=== PATIENT | male | born 1950 | race African-American/Black ===

== ENCOUNTER → 2016-04-21 | Outpatient (CLI) | payer OTHER ==
[~2016-04-21] MED LIST: 1-ME1LIQ PO; AMLO10TA2 PO; ASPI-110 PO; ASPI81TA82 PO; ATOR40TA49 PO; LIPI40TA PO; LISI-363 PO; LISI-515 PO; METF500T PO
[2016-04-21 11:17] LABS: AUTOMATED NEUTROPHIL # 2.2 TH/MM3 (1.8-7.7); BASOPHIL % 1.1 % (0.0-2.0); EOSINOPHIL % 0.7 % (0.0-4.0); HEMATOCRIT 44.8 % (39.0-51.0); HEMO FLAGS DIFF FINAL; LYMPH % 33.3 % (9.0-44.0); LYMPHOCYTE # 1.5 TH/MM3 (1.0-4.8); MEAN CORPUSCULAR HEMOGLOBIN 27.5 PG (27.0-34.0); MEAN CORPUSCULAR HGB CONC 32.8 % (32.0-36.0); MONO % 15.4 % (0.0-8.0); NEUT % 49.5 % (16.0-70.0); PLATELET COUNT 224 TH/MM3 (150-450); RED BLOOD COUNT 5.34 MIL/MM3 (4.50-5.90); RED CELL DISTRIBUTION WIDTH 14.1 % (11.6-17.2); WHITE BLOOD COUNT 4.5 TH/MM3 (4.0-11.0)
[2016-04-21 11:51] LABS: ALT (GPT) 39 U/L (12-78); ANION GAP 4 MEQ/L (5-15); AST (GOT) 23 U/L (15-37); BICARBONATE 32.1 MEQ/L (21.0-32.0); BLOOD UREA NITROGEN 10 MG/DL (7-18); CHLORIDE 104 MEQ/L (98-107); GLOMERULAR FILTRATION RATE 68 ML/MIN (>89); GLUCOSE,FASTING 95 MG/DL (74-99); POTASSIUM 3.7 MEQ/L (3.5-5.1); SODIUM (NA) 140 MEQ/L (136-145)
[2016-04-21 12:00] LABS: ALKALINE PHOSPHATASE 128 U/L (45-117); HDL CHOLESTEROL 47.1 MG/DL (40.0-60.0); LDL CHOLESTEROL 71 MG/DL (0-99); TOTAL BILIRUBIN ADULT 0.7 MG/DL (0.2-1.0)
[2016-04-21 13:50] LABS: HEMOGLOBIN A1a 1.1 %; HEMOGLOBIN Ao 83.2 %; HEMOGLOBIN LA1C 2.1 %; HEMOGLOBIN P3 4.5 %
== END ==
LOC: CLAB 11:00
PROVIDERS: ATTEND Family Medicine
DX: E11.9 Type 2 diabetes mellitus without complications (principal); R73.09 Other abnormal glucose; E78.5 Hyperlipidemia, unspecified; I10 Essential (primary) hypertension
CPT/HCPCS: 36415; 80053; 80061; 83036; 84443; 85025

== ENCOUNTER → 2016-07-12 | Outpatient (CLI) | payer OTHER ==
[~2016-07-12] MED LIST changes: -ASPI81TA82 PO; -ATOR40TA49 PO; -LISI-363 PO
[2016-07-12 12:16] LABS: ALKALINE PHOSPHATASE 116 U/L (45-117); ALT (GPT) 53 U/L (12-78); ANION GAP 6 MEQ/L (5-15); AST (GOT) 27 U/L (15-37); BICARBONATE 30.5 MEQ/L (21.0-32.0); BLOOD UREA NITROGEN 16 MG/DL (7-18); CHLORIDE 104 MEQ/L (98-107); GLOMERULAR FILTRATION RATE 63 ML/MIN (>89); GLUCOSE,FASTING 88 MG/DL (74-99); POTASSIUM 4.1 MEQ/L (3.5-5.1); SODIUM (NA) 140 MEQ/L (136-145); TOTAL BILIRUBIN ADULT 0.3 MG/DL (0.2-1.0)
--- NOTE | 2016-07-12 19:02 | EKG ---
Date Performed: 07/12/2016 Time Performed: 11:55:18 PTAGE: 65 years EKG: SINUS BRADYCARDIA WITH OCCASIONAL SUPRAVENTRICULAR PREMATURE COMPLEXES BORDERLINE ECG PREVIOUS TRACING : 03/30/2015 09.47 Since previous tracing, no significant change noted DOCTOR: Shira Burton Interpretating Date/Time 07/12/2016 19:00:45
== END ==
LOC: CLAB 11:17
PROVIDERS: ATTEND Family Medicine
DX: R00.0 Tachycardia, unspecified (principal)
CPT/HCPCS: 36415; 80053; 84443; 93005

== ENCOUNTER → 2016-08-23 | Outpatient (CLI) | payer OTHER ==
[~2016-08-23] MED LIST changes: -1-ME1LIQ PO
[2016-08-23 17:19] LABS: HEMOGLOBIN Ao 83.6 %; HEMOGLOBIN LA1C 1.9 %; HEMOGLOBIN P3 4.2 %
== END ==
LOC: CLAB 08:25
PROVIDERS: ATTEND Nurse Practitioner Family
DX: R73.09 Other abnormal glucose (principal)
CPT/HCPCS: 36415; 83036

== ENCOUNTER 2017-01-20 03:37 | Emergency (ER) | payer SELFPAY ==
[~2017-01-20] VITALS: Ht 162.6 cm; Wt 63.0 kg
[~2017-01-20 03:37] MED LIST changes: -ASPI-110 PO; +ASPI1TAB57 PO; -LIPI40TA PO; +LOVA20TA PO
[2017-01-20 03:42] VITALS: BP 170/87; PULSE 69; RESP 20; O2SAT 95
[2017-01-20] MEDS ORDERED: SODIUM CHLORIDE 0.9% FLUSH 10 ML FLUSH IVF PRN (04:15)
--- NOTE | 2017-01-20 04:27 | PD ---
HPI Chief Complaint: Anxiety Time Seen by Provider: 04:23 Travel History International Travel<30 days: No Contact w/Intl Traveler<30days: No Traveled to known affect area: No History of Present Illness HPI 66-year-old male presents to the emergency department from home by EMS transport for evaluation of palpitations. Patient states she also sometimes experiences pounding in his head at night. Patient takes blood pressure medication 2 tablets in the morning and one in the evening. Patient states more frequently he has been noticing these symptoms. Patient denies any chest pain. Pain is 0/10 in intensity. 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 Patient also does not report any upper or lower extremity numbness tingling or weakness or ataxia of gait. Patient's had no referred neck jaw back shoulder arm pain. Patient's had no shortness of breath and no pleuritic pain. Patient's had no nausea or vomiting or abdominal pain. Patient's had no recent febrile illness. Patient is compliant with his medications. Patient denies tobacco use. Patient does have diabetes and dyslipidemia. Patient has had good control of his blood sugars. [facility] Past Medical History Narrative Medical Anxiety depression dyslipidemia hypertension diabetes CVA no tobacco use; nursing notes reviewed Hx Anticoagulant Therapy: Yes Autoimmune Disease: No Anxiety: Yes Depression: Yes Heart Rhythm Problems: No Cancer: No Cardiovascular Problems: Yes High Cholesterol: Yes Chest Pain: No Congestive Heart Failure: No Cerebrovascular Accident: Yes Diabetes: No Patient Takes Glucophage: No Diminished Hearing: No Endocrine: No Genitourinary: No Hypertension: Yes Immune Disorder: No Neurologic: No Psychiatric: Yes Reproductive: No Respiratory: No Immunizations Current: Yes Sickle Cell Disease: Yes Thyroid Disease: No Tetanus Vaccination: > 5 Years Influenza Vaccination: No Past Surgical History Abdominal Surgery: No Cardiac Surgery: No Ear Surgery: No Endocrine Surgery: No Eye Surgery: No Genitourinary Surgery: Yes (Liver Biopsy) Oral Surgery: No Thoracic Surgery: No Other Surgery: Yes Social History Alcohol Use: No Tobacco Use: No Substance Use: No Allergies-Medications (Allergen,Severity, Reaction): Coded Allergies: penicillin G (Unverified Allergy, Unknown, 01/20/17) Reported Meds & Prescriptions Reported Meds & Active Scripts Active Lovastatin 20 Mg Tab 20 Mg PO DAILY Amlodipine (Amlodipine Besylate) 10 Mg Tab 10 Mg PO DAILY Metformin (Metformin HCl) 500 Mg Tab 500 Mg PO BIDPC With meals Lisinopril 20 Mg Tab 20 Mg PO BID Reported Aspirin 81 (Aspirin) 81 Mg Tabdr 81 Mg PO DAILY Review of Systems Except as stated in HPI: all other systems reviewed are Neg General / Constitutional: No: Fever, Chills Eyes: No: Diploplia, Blurred Vision, Photophobia HENT: No: Headaches, Vertigo, Lightheadedness Cardiovascular: Positive: Palpitations, No: Chest Pain or Discomfort, Diaphoresis Gastrointestinal: No: Nausea, Vomiting, Abdominal Pain Genitourinary: No: Frequency, Dysuria Musculoskeletal: No: Myalgias, Arthralgias Skin: No Rash Neurologic: No: Weakness, Dizziness, Syncope, Focal Abnormalities, Coordination Problem, Headache, Slurred Speech Psychiatric: Positive: Anxiety Endocrine: No: Heat Intolerance Hematologic/Lymphatic: No: Easy Bruising Physical Exam Narrative GENERAL: Well-developed well-nourished male in no acute distress no respiratory distress; GCS 15 SKIN: Warm and dry. HEAD: Atraumatic. Normocephalic. EYES: Pupils equal and round. No scleral icterus. No injection or drainage. ENT: No nasal bleeding or discharge. Mucous membranes pink and moist. NECK: Trachea midline. No JVD. CARDIOVASCULAR: Regular rate and rhythm. RESPIRATORY: No accessory muscle use. Clear to auscultation. Breath sounds equal bilaterally. GASTROINTESTINAL: Abdomen soft, non-tender, nondistended. Hepatic and splenic margins not palpable. MUSCULOSKELETAL: Extremities without clubbing, cyanosis, or edema. No obvious deformities. NEUROLOGICAL: Awake and alert. No obvious cranial nerve deficits. Motor grossly within normal limits. Five out of 5 muscle strength in the arms and legs. No limb ataxia. No pronator drift. Sensory exam intact. DTRs 2+ and equal bilaterally. Normal speech. PSYCHIATRIC: Appropriate mood and affect; insight and judgment normal. Data Data Last Documented VS Vital Signs Date Time Temp Pulse Resp B/P (MAP) Pulse Ox O2 Delivery O2 Flow Rate FiO2 01/20/17 06:52 56 18 130/77 (94) 98 Room Air Orders Orders Electrocardiogram (01/20/17 04:08) Basic Metabolic Panel (Bmp) (01/20/17 04:08) Ckmb (Isoenzyme) Profile (01/20/17 04:08) Complete Blood Count With Diff (01/20/17 04:08) Magnesium (Mg) (01/20/17 04:08) Prothrombin Time / Inr (Pt) (01/20/17 04:08) Act Partial Throm Time (Ptt) (01/20/17 04:08) Troponin I (01/20/17 04:08) Chest, Single Ap (01/20/17 04:08) Ecg Monitoring (01/20/17 04:08) Bilateral Bp Monitoring (01/20/17 04:08) Iv Access Insert/Monitor (01/20/17 04:08) Oximetry (01/20/17 04:08) Oxygen Administration (01/20/17 04:08) Sodium Chloride 0.9% Flush (Ns Flush) (01/20/17 04:15) Ct Brain W/O Iv Contrast(Rout) (01/20/17 ) Thyroid Stimulating Hormone (01/20/17 04:08) CKMB (01/20/17 04:18) CKMB% (01/20/17 04:18) Ed Discharge Order (01/20/17 07:39) Labs Laboratory Tests Test 01/20/17 04:18 White Blood Count 7.1 TH/MM3 Red Blood Count 5.27 MIL/MM3 Hemoglobin 15.0 GM/DL Hematocrit 45.9 % Mean Corpuscular Volume 87.1 FL Mean Corpuscular Hemoglobin 28.5 PG Mean Corpuscular Hemoglobin Concent 32.7 % Red Cell Distribution Width 14.3 % Platelet Count 210 TH/MM3 Mean Platelet Volume 7.7 FL Neutrophils (%) (Auto) 37.7 % Lymphocytes (%) (Auto) 49.1 % Monocytes (%) (Auto) 10.8 % Eosinophils (%) (Auto) 1.9 % Basophils (%) (Auto) 0.5 % Neutrophils # (Auto) 2.7 TH/MM3 Lymphocytes # (Auto) 3.5 TH/MM3 Monocytes # (Auto) 0.8 TH/MM3 Eosinophils # (Auto) 0.1 TH/MM3 Basophils # (Auto) 0.0 TH/MM3 CBC Comment DIFF FINAL Differential Comment Prothrombin Time 10.7 SEC Prothromb Time International Ratio 1.0 RATIO Activated Partial Thromboplast Time 24.5 SEC Blood Urea Nitrogen 28 MG/DL Creatinine 1.47 MG/DL Random Glucose 93 MG/DL Calcium Level 8.8 MG/DL Magnesium Level 2.3 MG/DL Sodium Level 141 MEQ/L Potassium Level 4.6 MEQ/L Chloride Level 105 MEQ/L Carbon Dioxide Level 29.4 MEQ/L Anion Gap 7 MEQ/L Estimat Glomerular Filtration Rate 58 ML/MIN Total Creatine Kinase 193 U/L Creatine Kinase MB 1.0 NG/ML Troponin I LESS THAN 0.02 NG/ML Thyroid Stimulating Hormone 3rd Gen 1.990 uIU/ML MDM Medical Decision Making Medical Screen Exam Complete: Yes Emergency Medical Condition: Yes Medical Record Reviewed: Yes Interpretation(s) EKG normal sinus rhythm rate 66 occasional supraventricular premature complexes no acute ST elevation injury pattern or ectopy Last Impressions Chest X-Ray 01/20/17 0408 Signed Impressions: Service Date/Time: Friday, January 20, 2017 04:41 - CONCLUSION: No acute cardiopulmonary disease identified. Tonio Lee MD Head CT 01/20/17 0000 Signed Impressions: Service Date/Time: Friday, January 20, 2017 04:46 - CONCLUSION: No acute intracranial findings. Tonio Lee MD CBC & BMP Diagram 01/20/17 04:18 Calcium Level 8.8, Magnesium Level 2.3 Vital Signs Date Time Temp Pulse Resp B/P (MAP) Pulse Ox O2 Delivery O2 Flow Rate FiO2 01/20/17 06:52 56 18 130/77 (94) 98 Room Air 01/20/17 03:42 69 20 170/87 (114) 95 CK 193, not elevated; troponin I less than 0.02, not elevated TSH 1.990 within normal limits Differential Diagnosis Palpitations, arrhythmia, electronic disturbance, atypical chest pain, ACS, MO, TIA, CVA, anxiety Narrative Course Patient placed on tar chaser IV access obtained specimens collected and sent for resulting EKG normal sinus rhythm with rare PAC rate [address] elevation injury pattern or ectopy noted CBC with automated differential and metabolic panel values grossly normal range except for mild renal insufficiency Cardiac enzymes are found to be in normal range troponin I less than 0.02 Thyroid function found to be within normal range Patient resting comfortably voicing no concerns or complaints is aware the CT brain noncontrast reveals no acute abnormalities and chest x-ray reveals no acute process Patient stable for outpatient management is given multiple resources to identify /establish with a primary care provider Diagnosis Primary Impression: Palpitations Additional Impressions: Hypertension Renal insufficiency Referrals: [facility] call for appointment [facility] call for appointment Primary Care Physician call for appointment Medicine relief salesperson: Dr Douglas Olsen Patient Instructions: General Instructions Additional Instructions: Continue current medications as presently prescribed Follow-up with your primary care provider or your clinic may also consider following up with [facility] or [facility] also may speak with case management nursing department to identify resources in the community for primary care provider Increase fluid hydration Return to the emergency department for any concerns or change in condition Med/Other Pt SpecificInfo: No Change to Meds Disposition: 01 DISCHARGE HOME Condition: Stable Betty Blank MD Jan 20, 2017 04:27
[2017-01-20 04:30] LABS: AUTOMATED NEUTROPHIL # 2.7 TH/MM3 (1.8-7.7); BASOPHIL % 0.5 % (0.0-2.0); EOSINOPHIL # 0.1 TH/MM3 (0-0.4); EOSINOPHIL % 1.9 % (0.0-4.0); HEMATOCRIT 45.9 % (39.0-51.0); HEMO FLAGS DIFF FINAL; LYMPH % 49.1 % (9.0-44.0); LYMPHOCYTE # 3.5 TH/MM3 (1.0-4.8); MEAN CELL VOLUME 87.1 FL (80.0-100.0); MEAN CORPUSCULAR HEMOGLOBIN 28.5 PG (27.0-34.0); MEAN CORPUSCULAR HGB CONC 32.7 % (32.0-36.0); MONO % 10.8 % (0.0-8.0); NEUT % 37.7 % (16.0-70.0); PLATELET COUNT 210 TH/MM3 (150-450); RED BLOOD COUNT 5.27 MIL/MM3 (4.50-5.90); RED CELL DISTRIBUTION WIDTH 14.3 % (11.6-17.2); WHITE BLOOD COUNT 7.1 TH/MM3 (4.0-11.0)
[2017-01-20 04:43] LABS: APTT (PATIENT) 24.5 SEC (24.3-30.1); PROTHROMBIN TIME - PATIENT 10.7 SEC (9.8-11.6)
[2017-01-20 04:53] LABS: ANION GAP 7 MEQ/L (5-15); BICARBONATE 29.4 MEQ/L (21.0-32.0); BLOOD UREA NITROGEN 28 MG/DL (7-18); CHLORIDE 105 MEQ/L (98-107); CREATINE KINASE 193 U/L (39-308); GLOMERULAR FILTRATION RATE 58 ML/MIN (>89); MAGNESIUM 2.3 MG/DL (1.5-2.5); POTASSIUM 4.6 MEQ/L (3.5-5.1); SODIUM (NA) 141 MEQ/L (136-145)
--- NOTE | 2017-01-20 05:20 | RADRPT ---
EXAM DATE/TIME: 01/20/2017 04:41 [facility] COMPARISON: CHEST SINGLE AP, March 30, 2015, 10:20. INDICATIONS : Palpitations. MEDICAL HISTORY : Hypertension. SURGICAL HISTORY : None. ENCOUNTER: Initial ACUITY: 1 day PAIN SCORE: 0/10 LOCATION: Bilateral chest FINDINGS: Single AP view of the chest. The lungs are clear. Cardiomediastinal silhouette within normal limits. No evidence of pleural effusion or pneumothorax. CONCLUSION: No acute cardiopulmonary disease identified. Tonio Lee MD on January 20, 2017 at 5:18 Board Certified Radiologist. This report was verified electronically.
--- NOTE | 2017-01-20 05:22 | RADRPT ---
EXAM DATE/TIME: 01/20/2017 04:46 [facility] COMPARISON: CT BRAIN W/O CONTRAST, March 30, 2015, 10:02. INDICATIONS : Dizziness. RADIATION DOSE: 32.20 CTDIvol (mGy) MEDICAL HISTORY : Hypertension. Sickle Cell disease. CVA. SURGICAL HISTORY : None. ENCOUNTER: Initial ACUITY: 1 day PAIN SCALE: 0/10 LOCATION: cranial TECHNIQUE: Multiple contiguous axial images were obtained of the head. Using automated exposure control and adj ustment of the mA and/or kV according to patient size, radiation dose was kept as low as reasonably a chievable to obtain optimal diagnostic quality images. DICOM format image data is available electro nically for review and comparison. FINDINGS: CEREBRUM: Old lacunar infarct left basal ganglia. The ventricles are normal for age. No evidence of midline sh ift, mass lesion, hemorrhage or acute infarction. No extra-axial fluid collections are seen. POSTERIOR FOSSA: The cerebellum and brainstem are intact. The 4th ventricle is midline. The cerebellopontine angle i s unremarkable. EXTRACRANIAL: The visualized portion of the orbits is intact. SKULL: The calvaria is intact. No evidence of skull fracture. CONCLUSION: No acute intracranial findings. Tonio Lee MD on January 20, 2017 at 5:19 Board Certified Radiologist. This report was verified electronically.
[2017-01-20 06:52] VITALS: BP 130/77; PULSE 56; RESP 18; O2SAT 98
--- NOTE | 2017-01-21 09:04 | EKG ---
Date Performed: 01/20/2017 Time Performed: 03:44:00 PTAGE: 66 years EKG: Sinus rhythm WITH OCCASIONAL SUPRAVENTRICULAR PREMATURE COMPLEXES Compared to prior tracing no significant change BORDERLINE ECG PREVIOUS TRACING : 07/12/2016 11.55 DOCTOR: Ric Olivera Interpretating Date/Time 01/21/2017 09:03:28
== END 2017-01-20 08:34 | disposition home or self-care (01) ==
LOC: NEPC 03:37
DX: R00.2 Palpitations (principal); I10 Essential (primary) hypertension; N28.9 Disorder of kidney and ureter, unspecified; R94.31 Abnormal electrocardiogram [ECG] [EKG]; E11.9 Type 2 diabetes mellitus without complications; E78.00 Pure hypercholesterolemia, unspecified; Z88.0 Allergy status to penicillin; Z86.73 Personal history of transient ischemic attack (TIA), and cerebral infarction without residual deficits
CPT/HCPCS: 70450; 71010; 80048; 82550; 82552; 83735; 84443; 84484; 85025; 85610; 85730; 93005; 99285